=== PATIENT | female | born 1980 | race Caucasian/White ===

== ENCOUNTER 2022-06-09 21:07 | Emergency (ER) | payer MEDICAID ==
[~2022-06-09] VITALS: Ht 152.4 cm; Wt 59.0 kg
[2022-06-09] MEDS ORDERED: KETOROLAC TROMETHAMINE INJ 30 MG/ML VIAL IV ONE (22:30)
[2022-06-09] MEDS ORDERED: IV NS 0.9% 1,000 ML BAG IV ONE (22:30)
--- NOTE | 2022-06-09 22:30 | NUR ---
BIBS C/O DIARRHEA AND EPIGASTRIC PAIN X1 DAY HX GALLSTONES 10/10 pain. awake and alert x4 rr even and unlabored. v/s wnl.
--- NOTE | 2022-06-09 22:37 | NUR ---
BLOOD COLLECTED AND SENT TO LAB
--- NOTE | 2022-06-09 22:37 | NUR ---
IV LINE ESTABLISHED, [id number]
[2022-06-09] MEDS ORDERED: KETOROLAC TROMETHAMINE 15 MG/ML VIAL ONE (22:39)
[2022-06-09 22:57] LABS: BASOPHILS % (AUTO) 0.2 % (0.0-2.0); EOSINOPHILS % (AUTO) 1.7 % (0.0-6.0); HEMATOCRIT 42 % (33-45); LYMPHOCYTES # (AUTO) 1.4 K/uL (0.8-4.8); LYMPHOCYTES % (AUTO) 14.3 % (20.0-44.0); MEAN CORPUSCULAR HGB CONC 33 g/dl (31.0-36.0); MEAN CORPUSCULAR VOLUME 86 fL (82-100); MONOCYTES # (AUTO) 0.5 K/uL (0.1-1.30); MONOCYTES % (AUTO) 4.9 % (2.0-12.0); NEUTROPHILS # (AUTO) 7.9 K/uL (1.8-8.9); NEUTROPHILS % (AUTO) 78.9 % (43.0-81.0); PLATELET COUNT (AUTO) 286 K/uL (150-450); RED BLOOD CELL COUNT(AUTO) 4.92 MIL/uL (4.0-5.2); WHITE BLOOD COUNT (AUTO) 10.1 K/uL (4.3-11.0)
[2022-06-09 23:07] LABS: CALCIUM, SERUM 9.3 mg/dL (8.5-10.1); CREATININE 0.8 mg/dL (0.6-1.3); POTASSIUM 3.5 mmol/L (3.5-5.1)
[2022-06-09 23:12] LABS: ALBUMIN 4.2 g/dL (3.4-5.0); BILIRUBIN,DIRECT 0.1 mg/dL (0.0-0.2); BILIRUBIN,TOTAL 0.4 mg/dL (0.2-1.0); TOTAL PROTEIN, SERUM 8.4 g/dL (6.4-8.2)
--- NOTE | 2022-06-09 23:30 | NUR ---
Note phylicia in EDM - 06/10/22 at 0001 by TIFFANY BIBS C/O DIARRHEA AND EPIGASTRIC PAIN X1 DAY HX GALLSTONES 11/14 pain. awake and alert x4 rr even and unlabored. v/s wnl.
[2022-06-09] MEDS ORDERED: LOPE2CAP40 PO (23:46)
[2022-06-09] MEDS ORDERED: KETO10TA2 PO (23:46)
--- NOTE | 2022-06-10 00:05 | NUR ---
Patient discharged to home in stable condition. Written and verbal after care instructions given. Patient verbalizes understanding of instruction.IV removed. Catheter intact and site benign. Pressure and 4x4 applied to site. No bleeding noted.
[2022-06-10 00:08] VITALS: BP 110/63
== END 2022-06-10 00:08 | disposition home or self-care (01) ==
LOC: ER 21:12
DX: K80.50 Calculus of bile duct without cholangitis or cholecystitis without obstruction (principal); R19.7 Diarrhea, unspecified
CPT/HCPCS: 99285; 96374; 76705; 96361; 85025; 80048; 83690; 80076; 36415; 85730; J7030; J1885